=== PATIENT | female | born 1995 | race Caucasian/White ===

== ENCOUNTER 2020-08-02 20:51 | Emergency (ER) | payer OTHER ==
[~2020-08-02] VITALS: Ht 162.6 cm; Wt 68.0 kg
[2020-08-02 21:00] VITALS: BP_SYST 148
--- NOTE | 2020-08-02 21:08 | NUR ---
Patient to ER CHAIR to gown for evaluation. Side rails up. Report given to NEPTALI MARIE.
--- NOTE | 2020-08-02 21:15 | NUR ---
RECEIVED AND IN CHAIR, PT C/O HEAD INJURY. LARGE HEMATOMA TO FOREHEAD. FALL FROM LADDER HITTING HEAD ON RAILING. DENIES LOC. DENIES NAUSEA VOMITING. ICE PACK
--- NOTE | 2020-08-02 21:26 | NUR ---
DR MEDEIROS IN TO ASSESS. PT UP AMBULATING STEADY. FOLLOWING INSTRUCTION AND NEURO EXAM TOLERATING WELL
[2020-08-02] MEDS: ACETAMINOPHEN 500 MG TABLET PO ONE (21:42)
--- NOTE | 2020-08-02 22:04 | NUR ---
Patient given written and verbal discharge instructions and verbalizes understanding. ER MD discussed with patient the results and treatment provided. Patient in stable condition. ID arm band removed. Rx of given. Patient educated on pain management and to follow up with PMD. Pain Scale 2/10 Opportunity for questions provided and answered. Medication side effect fact sheet provided.
[2020-08-02 22:06] VITALS: BP_SYST 146
== END 2020-08-02 22:06 | disposition home or self-care (01) ==
LOC: SED 20:51
DX: S00.81XA Abrasion of other part of head, initial encounter (principal); W11.XXXA Fall on and from ladder, initial encounter; Y93.89 Activity, other specified; Y92.89 Other specified places as the place of occurrence of the external cause; Y99.8 Other external cause status
CPT/HCPCS: 99282